=== PATIENT | female | born 1955 | race Caucasian/White ===

== ENCOUNTER 2022-03-01 07:15 | Outpatient (RCR) | payer MEDICARE, SELFPAY | END 2022-03-01 08:30 | disposition home or self-care (01) | LOC: ANHCPREHAB 07:15 | PROVIDERS: PCP Family Medicine; Visit Provider Internal Medicine Cardiovascular Disease | DX: Z95.5 Presence of coronary angioplasty implant and graft (principal) | CPT/HCPCS: 93798 ==